=== PATIENT | female | born 1950 | race Caucasian/White ===

== ENCOUNTER → 2017-04-27 | Outpatient (CLI) | payer OTHER ==
[~2017-04-27] MED LIST: ACTONEL PO; CALCIUM500 MG PO; CITRACAL200 MG; MULTI-VITAMIN1 EAC1 PO; PREMARIN PO; ZOCOR PO
--- NOTE | ~2017-04-27 | BD1 ---
[facility] A Service of [facility] RADIOLOGY TEXT RESULTS PATIENT: TOYIN VELASUQEZ LOCATION: [facility] : 48 UNIT #: [id number] AGE: [address]: Ina Cantu MD SEX: F ORDER DR: [id number] [address] [address] [id number] O MR#: [id number] Acc #: [id number] NAME: TOYIN VELASQUEZ : 1950 SEX: F STUDY DATE/TIME: 04/27/2017 9:53 UNIT: SRAD ROOM: STUDY DESCRIPTION: Dexa Bone Dens 1+ Site Attending Physician: Ina Cantu M.D. Referring Physician: Ina Cantu M.D. Ordering Physician: Ina Cantu M.D. Primary Care Physician: Ina Cantu M.D. MEDICAL IMAGING REPORT This report is preliminary unless electronic signature is present. EXAM DXA scan, 04/27/2017 HISTORY Postmenopausal screening for osteoporosis. COMPARISON DXA scan, 06/14/2012 FINDINGS Bone density was assessed utilizing a [employer] bone densitometer. Total bone density in the lumbar spine was calculated at 1.397 g/cm2 with a T-score of 1.8. This may be falsely elevated due to degenerative sclerosis at the L2 and L3 levels but excluding these levels, the patient's bone density within the lumbar region is still within normal limits. Bone density within the proximal left femoral neck was calculated at 0.826 g/cm2 with a T-score of -1.5. Right femoral neck bone density was assessed at 0.860 g/cm2 with a T-score of -1.3. When compared to the 2012 study there has been a 5% decrease in total bone density in the left proximal femur and about a 5% increase in total bone density within the lumbar spine utilizing the L1-L3 measurement but again this may be falsely elevated due to the sclerosis within L2 and L3 vertebral bodies most likely degenerative and overall I suspect that the bone density has decreased but only minimally. IMPRESSION Bone density within both proximal femurs within the femoral necks is between 1 to 2-1/2 standard deviations below the mean and is compatible with World Health Organization criteria for osteopenia. There has been about a 5% decrease in total bone density within the proximal femurs relative to the 2012 study. [facility] A Service of [facility] RADIOLOGY TEXT RESULTS PATIENT: TOYIN VELASQUEZ LOCATION: [facility] : 48 UNIT #: [id number] AGE: [address]: Ina Cantu MD SEX: F ORDER DR: Dictated by... Luis Enrique Clayton M.D. THIS IS AN ELECTRONICALLY VERIFIED REPORT Luis Enrique Clayton M.D. at 04/28/2017 4:46 PM Harsh TD: 04/27/2017 16:32 JOB #: [id number] MEDICAL IMAGING REPORT Page 1 of 1
== END | disposition home or self-care (01) ==
LOC: SRAD 10:00
DX: M85.80 Other specified disorders of bone density and structure, unspecified site (principal); Z78.0 Asymptomatic menopausal state
CPT/HCPCS: 77080